=== PATIENT | female | born 1995 | race Caucasian/White ===

== ENCOUNTER 2016-06-05 20:03 | Emergency (ER) | payer OTHER ==
[~2016-06-05] VITALS: Ht 170.2 cm; Wt 68.9 kg
[2016-06-05 20:16] VITALS: TEMP 36.9; Ht 170.2 cm; Wt 68.9 kg
[2016-06-05] MEDS ORDERED: IBUPROFEN 600 MG TAB PO STA (20:37)
--- NOTE | 2016-06-05 21:22 | DIAGNOSTIC IMAGING REPORT ---
LEFT SHOULDER MIN 2 VIEWS ROUTINE CLINICAL HISTORY: Left shoulder pain following fall. COMPARISON: None FINDINGS: Alignment of the left shoulder is anatomic. No definite fracture is identified. There is a vertical lucency through the lateral aspect of the left humeral head. This is likely artifactual. IMPRESSION: Vertical lucency through the left humeral head. This is likely artifactual. A nondisplaced fracture is considered less likely although if persistent pain, short-term radiographic follow up is recommended. Electronically signed by: Lewis Fallon M.D. 06/05/2016 9:20 PM Dictated Date/Time: 06/05/2016 9:19 PM
--- NOTE | 2016-06-05 21:42 | EMERGENCY ROOM VISIT NOTE ---
ED Visit Note First contact with patient: 20:28 CHIEF COMPLAINT: Left Shoulder injury HISTORY OF PRESENT ILLNESS: This 21-year-old female presents the ER with chief complaint of left shoulder pain. The patient states on Sunday night she fell and landed directly onto her left shoulder. 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 The patient states that she was on a lot of movements with her upper arms,, swinging her arms back and forth and after the class she has had increased pain in the arm with some numbness and tingling. The patient denies any prior injury to the left shoulder. The patient denies any neck pain. REVIEW OF SYSTEMS: 6 system review was performed and was negative unless stated otherwise in history of present illness. PMH: The patient is healthy; anxiety/depression, concussion, ankle surgery, wisdom tooth removal SOCIAL HISTORY: Patient is a [employer] student. The patient denies any tobacco use but admits to very rare alcohol use. PHYSICAL EXAM: Vital Signs: Were reviewed Reviewed nurse's notes. GEN.: 21-year -old white female appears in no acute distress. MENTAL Status: Alert and oriented 3. LEFT shoulder: The shoulder is not swollen or deformed on inspection. The range of motion is limited in all directions because of the pain. There is tenderness palpation over the before meals joint as well as over the posterior aspect of the shoulder joint. Mis Manager strength is 5 out of 5 as compared to the right. EMERGENCY DEPARTMENT COURSE: The patient was evaluated. The patient was given Motrin 600 mg by mouth for pain. X-ray of the left shoulder was ordered and interpreted by the radiologist and myself. DIAGNOSTICS:LEFT SHOULDER MIN 2 VIEWS ROUTINE CLINICAL HISTORY: Left shoulder pain following fall. COMPARISON: None FINDINGS: Alignment of the left shoulder is anatomic. No definite fracture is identified. There is a vertical lucency through the lateral aspect of the left humeral head. This is likely artifactual. IMPRESSION: Vertical lucency through the left humeral head. This is likely artifactual. A nondisplaced fracture is considered less likely although if persistent pain, short-term radiographic follow up is recommended. Electronically signed by: Lewis Fallon M.D. 06/05/2016 9:20 PM The patient was informed of the findings. The patient was placed in a arm sling and discharged home in stable condition. DIAGNOSIS: Left shoulder pain/possible fracture DISCHARGE INSTRUCTIONS & TREATMENT: Rest arm in sling until evaluated by orthopedics. Ice intermittently to the affected area. Ibuprofen 600 mg every 6 hours with food for pain. Call Dr. Dickerson tomorrow for follow-up appointment. Vital Signs Date Time Temp Pulse Resp B/P Pulse Ox O2 Delivery O2 Flow Rate FiO2 06/05/16 20:16 36.9 110 18 123/74 98 Room Air Departure Information Patient Instructions [facility]
[2016-06-05 22:37] VITALS: BP 125/78; PULSE 70; O2SAT 99
== END 2016-06-05 22:40 | disposition home or self-care (01) ==
LOC: C.EDB 20:05 → C.EDD 22:40
DX: M25.512 Pain in left shoulder (principal); W19.XXXA Unspecified fall, initial encounter; F41.9 Anxiety disorder, unspecified; F32.9 Major depressive disorder, single episode, unspecified